=== PATIENT | female | born 2000 | race Two or more races ===

== ENCOUNTER → 2024-07-28 | Emergency (ER) | payer OTHER ==
[~2024-07-28] VITALS: Ht 160 cm; Wt 53.5 kg
[~2024-07-28] MED LIST: AIRDUO RESPICL1 EAC2; PROAIR RESPICL90 MCG
== END | disposition home or self-care (01) ==
LOC: ER 06:10
DX: R06.02 Shortness of breath (principal); Z91.013 Allergy to seafood